=== PATIENT | female | born 1955 | race African-American/Black ===

== ENCOUNTER 2021-08-31 15:28 | Emergency (ER) | payer OTHER ==
[~2021-08-31] VITALS: Ht 162.6 cm; Wt 78.0 kg
[2021-08-31] MEDS ORDERED: IBUPROFEN 400MG TABLET PO ONE (16:45)
[2021-08-31] MEDS ORDERED: ACETAMINOPHEN 325MG TABLET PO ONE (16:45)
[2021-08-31 17:49] VITALS: BP 154/64
== END 2021-08-31 17:51 | disposition home or self-care (01) ==
LOC: ER 15:28
DX: M54.2 Cervicalgia (principal); Z88.0 Allergy status to penicillin; V49.9XXA Car occupant (driver) (passenger) injured in unspecified traffic accident, initial encounter; Y93.89 Activity, other specified; Y92.89 Other specified places as the place of occurrence of the external cause; Y99.8 Other external cause status
CPT/HCPCS: 76705; 99284